=== PATIENT | female | born 1995 | race African-American/Black ===

== ENCOUNTER → 2018-08-09 | Outpatient (CLI) | payer MEDICAID ==
[2018-08-09 10:39] LABS: Basophils # (auto) 0 uL; Basophils % (auto) 0.3 % (0.0-2.0); Eosinophils # (auto) 0 uL; Eosinophils % (auto) 0.2 % (0.0-7.0); Hematocrit 37.3 % (36.0-46.0); Hemoglobin 12.2 g/dL (12.2-16.2); Lymphocytes # (auto) 0.9 uL; Mean Corpuscular Hemoglobin 28.3 pg (28.0-32.0); Mean Corpuscular Hgb Conc. 32.6 g/dL (32.0-36.0); Mean Corpuscular Volume 86.6 fL (80.0-100.0); Monocytes # (auto) 0.4 uL; Neutrophils # (auto) 5.9 uL; Neutrophils % (auto) 81.5 % (37.0-80.0); Platelet Count (auto) 217 10^3/uL (140-450); Red Blood Cells 4.31 10^6/uL (4.0-5.20); Red Cell Distribution Width 16.4 % (11.8-14.3); White Blood Cell 7.2 10^3/uL (4.4-10.8)
[2018-08-09 10:59] LABS: Alcohol, Urine < 3.0 mg/dL (0-5); Amphetamine Screen, Urine NEGATIVE (NEGATIVE); Barbiturate Scree,Urine NEGATIVE (NEGATIVE); Cannabinoid Screen, Urine NEGATIVE (NEGATIVE); Cocaine Screen, Urine NEGATIVE (NEGATIVE); Opiate Scree,Urine NEGATIVE (NEGATIVE); Phencyclidine Screen, Urine NEGATIVE (NEGATIVE)
[2018-08-09 11:13] LABS: Benzodiazephine Screen, Urine NEGATIVE (NEGATIVE)
== END | disposition home or self-care (01) ==
LOC: LAB 09:38
PROVIDERS: ATTEND Obstetrics & Gynecology
DX: O23.41 Unspecified infection of urinary tract in pregnancy, first trimester (principal); Z20.2 Contact with and (suspected) exposure to infections with a predominantly sexual mode of transmission; Z3A.01 Less than 8 weeks gestation of pregnancy
CPT/HCPCS: 36415; 80307; 83036; 84702; 85025; 86703; 86762; 86850; 86900; 86901; 87086; 87340; 87591

== ENCOUNTER 2018-10-22 23:17 | Observation (INO) | payer MEDICAID ==
[~2018-10-22] VITALS: Ht 154.9 cm; Wt 52.2 kg
[2018-10-22] MEDS ORDERED: LACTATED RINGER'S 1,000 ML IV ONE (23:40)
[2018-10-22] MEDS ORDERED: ACETAMINOPHEN 325 MG TAB PO ONE (23:45)
[2018-10-22] MEDS ORDERED: TERBUTALINE SULFATE 1 MG/ML 1ML VIAL SC SCH (23:45)
[2018-10-22] MEDS ORDERED: TERBUTALINE SULFATE 1 MG/ML 1ML VIAL SC ONE (23:47)
== END 2018-10-23 01:22 | disposition home or self-care (01) | DRG 563 ==
LOC: LDRP 23:17
PROVIDERS: ADMIT Specialist; ATTEND Specialist
DX: O60.02 Preterm labor without delivery, second trimester (principal); S09.90XA Unspecified injury of head, initial encounter; O26.892 Other specified pregnancy related conditions, second trimester; R10.9 Unspecified abdominal pain; R42 Dizziness and giddiness; R51 Headache; X58.XXXA Exposure to other specified factors, initial encounter; Y08.89XA Assault by other specified means, initial encounter; Z3A.27 27 weeks gestation of pregnancy
CPT/HCPCS: 59025; 76815; 81002; 96372; G0378; J3105; 96361; 96366

== ENCOUNTER 2018-11-07 15:45 | Observation (INO) | payer MEDICAID | END 2018-11-07 16:45 | disposition home or self-care (01) | DRG 566 | LOC: LDRP 15:45 | PROVIDERS: ADMIT Obstetrics & Gynecology; ATTEND Obstetrics & Gynecology | DX: O62.9 Abnormality of forces of labor, unspecified (principal); O26.893 Other specified pregnancy related conditions, third trimester; N89.8 Other specified noninflammatory disorders of vagina; W19.XXXA Unspecified fall, initial encounter; Y93.89 Activity, other specified; Y92.89 Other specified places as the place of occurrence of the external cause; Y99.8 Other external cause status; Z3A.29 29 weeks gestation of pregnancy | CPT/HCPCS: 59025; 81002; G0378 ==

== ENCOUNTER 2019-01-08 06:00 | Inpatient (IN) | payer MEDICAID ==
[~2019-01-08] VITALS: Ht 154.9 cm; Wt 58.5 kg
[2019-01-08] MEDS ORDERED: LACT. RINGERS/OXYTOCIN 20UNITS 1,000 ML IV SCH (06:09)
[2019-01-08] MEDS: LACTATED RINGER'S 1,000 ML IV SCH ×2 (06:09→14:30)
[2019-01-08] MEDS ORDERED: LIDOCAINE 1% (LOCAL ANESTH.) PF 5ml SDV IJ ONE (06:15)
[2019-01-08] MEDS ORDERED: PHISODERM TOP SOLN 240ML BTL TOP PRN (06:15)
[2019-01-08] MEDS ORDERED: PROMETHAZINE HCL 25 MG/ML 1ML IV ONE (06:15)
[2019-01-08] MEDS ORDERED: WITCH HAZEL-GLYCERIN PAD TOP PRN (06:15)
[2019-01-08] MEDS ORDERED: DERMOPLAST 60ML BOTTLE TOP PRN (06:15)
[2019-01-08] MEDS ORDERED: NALBUPHINE HCL 10 MG/1ml INJECTION IV PRN (06:15)
[2019-01-08 07:20] LABS: Basophils # (auto) 0.1 uL; Lymphocytes # (auto) 1.8 uL; Mean Corpuscular Volume 73.1 fL (80.0-100.0); Nucleated Red Blood Cells % 0.1 %
[2019-01-08 07:23] LABS: Basophils % (auto) 0.8 % (0.0-2.0); Eosinophils # (auto) 0.1 uL; Eosinophils % (auto) 0.6 % (0.0-7.0); Hematocrit 24.7 % (36.0-46.0); Hemoglobin 7.6 g/dL (12.2-16.2); Lymphocytes % (auto) 20.8 % (10.0-50.0); Mean Corpuscular Hemoglobin 22.6 pg (28.0-32.0); Mean Corpuscular Hgb Conc. 30.9 g/dL (32.0-36.0); Monocytes # (auto) 0.7 uL; Monocytes % (auto) 7.7 % (0.0-12.0); Neutrophils % (auto) 70.1 % (37.0-80.0); Platelet Count (auto) 227 10^3/uL (140-450); Red Blood Cells 3.37 10^6/uL (4.0-5.20); Red Cell Distribution Width 17.2 % (11.8-14.3); White Blood Cell 8.6 10^3/uL (4.4-10.8)
[2019-01-08 07:25] LABS: INR 0.97 (0.9-1.15); Partial Thromboplastin Time 32.6 sec (23.78-33.04); Prothrombin Time 10.4 sec (9.27-12.13)
[2019-01-08 07:30] LABS: Albumin 2.6 g/dL (3.4-5.0); Calcium 8.1 mg/dL (8.5-10.1); Potassium 3.8 mmol/L (3.5-5.1)
[2019-01-08 07:33] LABS: BUN/Creatinine Ratio 7.4; Bilirubin, Total 0.3 mg/dL (0.2-1.0); Total Protein 6.1 g/dL (6.4-8.2)
[2019-01-08 07:53] LABS: Urine Bacteria FEW /hpf (None Seen); Urine Blood Negative /uL (Negative); Urine Specific Gravity 1.009 (1.001-1.035); Urine WBC 2 /hpf (0 - 5)
[2019-01-08] MEDS ORDERED: LIDOCAINE 2%HCL (LOCAL ANESTH.) INJ 20ML MDV IJ ONE (08:15)
[2019-01-08 14:59] LABS: Hematocrit 25.9 % (36.0-46.0); Hemoglobin 7.9 g/dL (12.2-16.2); Mean Corpuscular Hgb Conc. 30.4 g/dL (32.0-36.0); Mean Corpuscular Volume 72.3 fL (80.0-100.0); Platelet Count (auto) 208 10^3/uL (140-450); Red Blood Cells 3.58 10^6/uL (4.0-5.20); Red Cell Distribution Width 17.7 % (11.8-14.3)
--- NOTE | 2019-01-08 15:10 | NUR ---
Ambulation: Patient OOB with standby assistance by RN. Patient ambulated to bathroom with steady gait. Patient able to void 900 CC without difficulty. Judit care teaching provided with returned demonstration by patient. Clean gown provided and bed linen changed. Patient ambulated back to bed with steady gait and no distress noted.
[2019-01-08 15:39] LABS: Band Neutrophils % (manual) 0; Basophils % (manual) 0 (0.0-2.0); Blast Cells 0; Eosinophils % (manual) 0 (0-7); Metamyelocytes % 0; Myelocytes % 0; Promyelocytes % 0; Reactive Lymphocytes 0
--- NOTE | 2019-01-08 15:45 | NUR ---
Teaching: Reviewed information in [facility] booklet with patient. Discussed benefits of and risks associated with not . Discussed different positions, proper latch, feeding cues, and baby-led . latched on. provided information of medication side effects related to . All questions and concerns addressed at this time. Patient verbalized understanding of information.
[2019-01-08] MEDS: IBUPROFEN 600 MG TAB PO PRN ×2 (16:01→21:38)
--- NOTE | 2019-01-08 16:15 | NUR ---
Dr Tello made aware of HGB 7.9, HCT 25.[address] on the [address] per dr Tello redraw H&H in the morning. monitor the patient for symptoms of blood loss. Pt assessed, pt denies any weakness or dizziness at this time, vital signs WNL. will continue to monitor the patient. Addendum: 01/08/19 at 1746 by Pola Ann RN The time report given at 4:[address] tello
[2019-01-08 18:14] LABS: Lymphocytes % (manual) 6 (10.0-50.0); Monocytes % (manual) 1 (0-12)
[2019-01-08 18:45] VITALS: BP 109/59
[2019-01-08 22:30] VITALS: BP 94/52
[2019-01-09] MEDS: IBUPROFEN 600 MG TAB PO PRN ×2 (02:46→06:49)
[2019-01-09 02:52] VITALS: BP 110/67
[2019-01-09 06:06] LABS: RPR Non Reactive (Non Reactive)
[2019-01-09 06:45] VITALS: BP 121/71
[2019-01-09] MEDS ORDERED: PRENATAL VITAMIN TAB PO ONE ×2 (06:45→10:00)
[2019-01-09 07:45] LABS: Hematocrit 24.4 % (36.0-46.0); Hemoglobin 7.5 g/dL (12.2-16.2)
--- NOTE | 2019-01-09 08:35 | NUR ---
LABS REVIEWED called with updated lab draw. Pt asymptomatic, VS WNL. New order to continue giving iron supplementation to patient, and let her know that she will stay one more day for evaluation.
--- NOTE | 2019-01-09 08:51 | NUR ---
PT UPDATED Pt updated on POC. Pt states "That's not gonna work, since I need to get home to my other baby" Pt educated on low hgb/hct risks. Pt states "I understand, but I gotta go. I don't want it to seem like I am refusing, but I gotta go to be with my baby, because he is with my great aunt, but I will try the vitamins and see what I choose to do later on".
[2019-01-09] MEDS ORDERED: ASCORBIC ACID 500 MG TAB PO SCH (10:00)
[2019-01-09] MEDS ORDERED: FERROUS SULFATE 325 MG TAB PO SCH ×2 (10:00→14:00)
[2019-01-09 10:50] VITALS: BP 111/65
[2019-01-09 15:00] VITALS: BP 107/64
--- NOTE | 2019-01-09 15:40 | NUR ---
MD UPDATE called with updates on 's POC to DC home. Mother (Michelle) insisted on leaving, once infant's labs were back if stable. Per , she didn't see the patient, so this RN is to call for DC order, and call her back with status update. This RN calls , DC order received, as pt is asymptomatic at this time, VS WNL, and pt insists on leaving, regardless. ok with pt leaving and following up in the office as usual. called back, with updates, as she requested. disagrees and states the pt is to wait to be evaluated by a compensation administrator tom. Pt to be updated on POC. Josie, rehabilitation services coordinator and Amy, OB Director both aware of situation.
--- NOTE | 2019-01-09 16:00 | NUR ---
AMA Pt updated on POC. Pt insists on leaving, regardless of 's request. Pt signs AMA form, even though gives DC order to this RN, on-call today.
--- NOTE | 2019-01-09 16:30 | NUR ---
IV REMOVAL IV DC'd with clean technique, catheter fully intact. Pressure dressing applied to site. Patient tolerated procedure well.
--- NOTE | 2019-01-09 16:56 | NUR ---
DISCHARGE Discharge instructions given as ordered. Pt encouraged to follow up with NON DESTRUCTIVE TESTER as instructed. All questions and concerns addressed. Patient verbalized understanding. Medication reconciliation completed and copy given to patient. All required/requested vaccines given and copies of vaccinations given to patient. Patient encouraged to prepare to depart unit.
[2019-01-09 17:12] VITALS: BP 117/67
[2019-01-09 17:13] VITALS: BP 117/67
--- NOTE | 2019-01-09 17:30 | NUR ---
DISCHARGE Patient ambulated to vehicle with all personal belongings, per pt request, accompanied by staff and family member. No distress noted at time of departure, no adverse changes in status since initial assessment.
== END 2019-01-09 17:30 | disposition home or self-care (01) | DRG 560 ==
LOC: LDRP 06:00 → OBSVTOIN 06:00
PROVIDERS: ADMIT Specialist; ATTEND Specialist
PROC: 10D07Z6 Extraction of Products of Conception, Vacuum, Via Natural or Artificial Opening (ICD-10-PCS; principal; 2019-01-08)
PROC: 10907ZC Drainage of Amniotic Fluid, Therapeutic from Products of Conception, Via Natural or Artificial Opening (ICD-10-PCS; 2019-01-08)
DX: O69.81X0 Labor and delivery complicated by cord around neck, without compression, not applicable or unspecified (principal); O99.345 Other mental disorders complicating the puerperium; D64.9 Anemia, unspecified; F53.0 Postpartum depression; O90.81 Anemia of the puerperium; Z37.0 Single live birth; Z3A.38 38 weeks gestation of pregnancy; O42.02 Full-term premature rupture of membranes, onset of labor within 24 hours of rupture
CPT/HCPCS: 36415; 59025; 59409; 80053; 81001; 81002; 85007; 85014; 85018; 85025; 85027; 85610; 85730; 86592; 86850; 86900; 86901; 86920; 96361; 96366; 96374; G0378; J2590